=== PATIENT | female | born 1985 | race African-American/Black ===

== ENCOUNTER 2017-07-05 04:52 | Emergency (ER) | payer MEDICAID ==
[~2017-07-05] VITALS: Ht 162.6 cm; Wt 57.0 kg
[~2017-07-05 04:52] MED LIST: NO MEDICATIONS REPORTED
[2017-07-05] MEDS ORDERED: TETANUS, DIPHTHERIA, PERTUSSIS VAC/PF 0.5ML (>7YR OLD) IM ONE (06:15)
[2017-07-05] MEDS ORDERED: ONDANSETRON 4MG ODT PO ONE (06:15)
[2017-07-05] MEDS ORDERED: MORPHINE SULFATE 10 MG/ML CPJ SUBCUT ONE (06:15)
[2017-07-05 07:59] VITALS: BP 122/76
== END 2017-07-05 08:00 | disposition home or self-care (01) ==
LOC: ER 04:52
DX: S40.022A Contusion of left upper arm, initial encounter (principal); S91.203A Unspecified open wound of unspecified great toe with damage to nail, initial encounter; Y93.89 Activity, other specified; Y04.2XXA Assault by strike against or bumped into by another person, initial encounter; Y92.89 Other specified places as the place of occurrence of the external cause; R03.0 Elevated blood-pressure reading, without diagnosis of hypertension; F17.210 Nicotine dependence, cigarettes, uncomplicated; F12.90 Cannabis use, unspecified, uncomplicated; Z23 Encounter for immunization; M25.532 Pain in left wrist
CPT/HCPCS: 73090; 73660; 90471; 90715; 96372; 99284; J2270; Q0162; Z7610; A4565

== ENCOUNTER 2018-02-21 10:40 | Emergency (ER) | payer MEDICAID, OTHER ==
[~2018-02-21] VITALS: Ht 165.1 cm; Wt 58.0 kg
[2018-02-21] MEDS ORDERED: ACETAMINOPHEN 325MG TABLET PO ONE (11:30)
[2018-02-21 13:35] VITALS: BP 118/75
== END 2018-02-21 13:38 | disposition home or self-care (01) ==
LOC: ER 11:15
DX: J02.9 Acute pharyngitis, unspecified (principal); R51 Headache; K12.0 Recurrent oral aphthae; F12.10 Cannabis abuse, uncomplicated; Z98.890 Other specified postprocedural states; Z98.51 Tubal ligation status
CPT/HCPCS: 87070; 87430; 99283

== ENCOUNTER 2018-06-14 20:09 | Emergency (ER) | payer MEDICAID ==
[~2018-06-14] VITALS: Ht 165.1 cm; Wt 60.0 kg
[2018-06-14] MEDS ORDERED: SODIUM CHLORIDE 0.9% 1,000 ML IV ONE ×2 (21:00→22:03)
[2018-06-14] MEDS ORDERED: ONDANSETRON HCL 4MG/2ML INJ IV STA (21:00)
[2018-06-14] MEDS ORDERED: MORPHINE SULFATE 4 MG/ML CPJ (NOT FOR IM USE) IV STA (21:00)
[2018-06-14 21:11] LABS: CLARITY URINE CLEAR (CLEAR); COLOR URINE YELLOW (YELLOW); KETONES URINE NEGATIVE (NEGATIVE); LEUKOCYTE ESTERASE URINE NEGATIVE (NEGATIVE); NITRITE URINE NEGATIVE (NEGATIVE); OCCULT BLOOD URINE NEGATIVE (NEGATIVE); PROTEIN URINE NEGATIVE (NEGATIVE); SPECIFIC GRAVITY URINE 1.019 (1.005-1.030)
[2018-06-14 21:29] LABS: HEMATOCRIT. 28.3 % (36.0-48.0); HEMOGLOBIN. 8.5 g/dL (12.0-16.0); MEAN CORPUSCULAR HEMOGLOBIN 20.4 pg (28.0-32.0); MEAN PLATELET VOLUME 6.7 fl (7.4-10.4); PLATELET 343 x1000/uL (130-400); RED BLOOD CELL COUNT 4.16 mill/uL (4.2-5.4)
[2018-06-14 21:34] LABS: CHLORIDE 109 mEq/L (98-107)
[2018-06-14 21:37] LABS: PARTIAL THROMBOPLASTIN TIME 27.6 sec (23.4-31.0); PROTHROMBIN TIME 10.6 sec (9.6-11.0)
[2018-06-14 21:38] LABS: ETHANOL BLOOD < 10 mg/dL
[2018-06-14 21:40] LABS: HCG SCREEN NEGATIVE
[2018-06-14 21:41] LABS: *AMPHETAMINES SCREEN URINE NEGATIVE (NEGATIVE); *BARBITURATES SCREEN URINE NEGATIVE (NEGATIVE)
[2018-06-14 21:42] LABS: *BENZODIAZEPINES SCREEN URINE NEGATIVE (NEGATIVE); *COCAINE SCREEN URINE NEGATIVE (NEGATIVE); METHADONE URINE SCREEN NEGATIVE (NEGATIVE); OPIATES URINE SCREEN NEGATIVE (NEGATIVE); PHENCYCLIDINE URINE SCREEN NEGATIVE (NEGATIVE)
[2018-06-14 21:50] LABS: CANNABINOID URINE SCREEN PRESUMTIVE POSITIVE (NEGATIVE)
[2018-06-14 21:57] LABS: PLATELET ESTIMATE NORMAL
[2018-06-14] MEDS ORDERED: KETOROLAC 30MG/ML VIAL IV ONE (22:15)
[2018-06-14 23:34] VITALS: BP 120/76
== END 2018-06-14 23:39 | disposition home or self-care (01) ==
LOC: ER 20:14
DX: N83.209 Unspecified ovarian cyst, unspecified side (principal); N28.1 Cyst of kidney, acquired; F12.10 Cannabis abuse, uncomplicated; Z98.890 Other specified postprocedural states; Z98.51 Tubal ligation status
CPT/HCPCS: 36415; 74176; 80053; 80305; 80320; 81003; 81025; 83690; 83880; 84484; 84703; 85025; 85610; 85730; 96374; 96375; 99284; J1885; J2270; J2405; J7030; Z7610; G0480

== ENCOUNTER 2022-08-08 07:22 | Emergency (ER) | payer MEDICAID ==
[~2022-08-08] VITALS: Ht 170.2 cm; Wt 52.3 kg
[~2022-08-08 07:22] MED LIST changes: +SERT25TA PO
[2022-08-08 07:31] VITALS: BP 120/81
[2022-08-08 08:55] LABS: HEMATOCRIT. 29.9 % (36.0-48.0); MEAN CORPUSCULAR HEMOGLOBIN 19.6 pg (28.0-32.0); MEAN CORPUSCULAR VOLUME 64.8 fL (81.0-99.0); MEAN PLATELET VOLUME 8.6 fl (7.4-10.4); PLATELET 358 x1000/uL (130-400); RED BLOOD CELL COUNT 4.61 mill/uL (4.2-5.4); RED CELL DISTRIBUTION WIDTH 28.5 % (11.6-14.6)
[2022-08-08 09:02] LABS: CHLORIDE 111 mEq/L (98-107)
[2022-08-08 11:41] LABS: PLATELET ESTIMATE NORMAL
== END 2022-08-08 09:00 | disposition left against medical advice (07) ==
LOC: ER 07:22
DX: Z53.21 Procedure and treatment not carried out due to patient leaving prior to being seen by health care provider (principal)
CPT/HCPCS: 36415; 80053; 85025; 86850; 86900; 99281

== ENCOUNTER 2023-10-26 20:45 | Inpatient (IN) | payer BC, MEDICAID, MEDICARE ==
[~2023-10-26] VITALS: Ht 170.2 cm; Wt 59.0 kg
[2023-10-26 21:33] LABS: MEAN CORPUSCULAR HEMOGLOBIN 19.7 pg (28.0-32.0); MEAN CORPUSCULAR HGB CONC 29.9 g/dL (31.0-37.0); MEAN CORPUSCULAR VOLUME 65.8 fL (81.0-99.0); MEAN PLATELET VOLUME 8.5 fl (7.4-10.4); PLATELET 433 x1000/uL (130-400); RED BLOOD CELL COUNT 3.57 mill/uL (4.2-5.4); RED CELL DISTRIBUTION WIDTH 28.1 % (11.6-14.6); WHITE BLOOD COUNT 7.7 x1000/uL (4.5-11.0)
[2023-10-26 21:39] LABS: CHLORIDE 108 mEq/L (98-107); POTASSIUM 3.6 mEq/L (3.5-5.1); SODIUM 138 mEq/L (136-145)
[2023-10-26 21:40] LABS: CALCIUM 8.8 mg/dL (8.7-10.4); CARBON DIOXIDE 25 mEq/L (21-32)
[2023-10-26 21:45] LABS: CREATININE 0.8 mg/dL (0.6-1.0); GLUCOSE 92 mg/dL (70-105); PARTIAL THROMBOPLASTIN TIME 27.1 sec (23.4-31.0); PROTHROMBIN TIME 10.9 sec (9.6-11.0); UREA NITROGEN BLOOD 8 mg/dL (9-23)
[2023-10-26 21:46] LABS: DIFFERENTIAL COMMENT 1
[2023-10-26 21:52] LABS: HEMATOCRIT. 23.5 % (36.0-48.0)
[2023-10-26 21:53] LABS: TROPONIN I HIGH SENSITIVITY < 4 ng/L (3.0-34)
[2023-10-26 22:01] LABS: HCG SCREEN NEGATIVE
[2023-10-26 22:55] LABS: ANISOCYTOSIS 2+; PLATELET ESTIMATE INCREASED
[2023-10-26 22:56] LABS: HYPOCHROMASIA 2+; MICROCYTOSIS 3+
[2023-10-26] MEDS: KETOROLAC 30MG/ML VIAL IV ONE (23:06)
[2023-10-27] MEDS ORDERED: NALOXONE HCL 0.4MG/ML VIAL IV PRN (09:00)
[2023-10-27] MEDS: ONDANSETRON HCL 4MG/2ML INJ IV PRN (09:05)
[2023-10-27] MEDS: HYDROCODONE/ACETAMINOPHEN 10/325MG TABLET PO PRN (09:05)
[2023-10-27 10:00] VITALS: BP 125/70; PULSE 88; RESP 18; TEMP 36.78072; O2SAT 100
[2023-10-27 10:47] VITALS: BP 125/70; PULSE 88; RESP 18; TEMP 36.8628
[2023-10-27 12:00] VITALS: BP 115/55; PULSE 43; RESP 18; TEMP 36.61404
[2023-10-27] MEDS ORDERED: ACETAMINOPHEN 325MG TABLET PO PRN (12:15)
[2023-10-27] MEDS ORDERED: CLONIDINE 0.1MG TABLET PO PRN (12:15)
[2023-10-27] MEDS ORDERED: ONDANSETRON HCL 4MG/2ML INJ IV PRN (12:15)
[2023-10-27 12:20] LABS: HEMATOCRIT. 28.9 % (36.0-48.0); HEMOGLOBIN. 8.4 g/dL (12.0-16.0); MEAN CORPUSCULAR HEMOGLOBIN 20.2 pg (28.0-32.0); MEAN CORPUSCULAR HGB CONC 29.2 g/dL (31.0-37.0); MEAN CORPUSCULAR VOLUME 69.3 fL (81.0-99.0); MEAN PLATELET VOLUME 8.5 fl (7.4-10.4); PLATELET 435 x1000/uL (130-400); RED BLOOD CELL COUNT 4.17 mill/uL (4.2-5.4); RED CELL DISTRIBUTION WIDTH 29.3 % (11.6-14.6); WHITE BLOOD COUNT 10.8 x1000/uL (4.5-11.0)
[2023-10-27 12:24] LABS: CALCIUM 9.3 mg/dL (8.7-10.4); CHLORIDE 108 mEq/L (98-107); POTASSIUM 4.2 mEq/L (3.5-5.1); SODIUM 140 mEq/L (136-145)
[2023-10-27 12:25] LABS: CARBON DIOXIDE 27 mEq/L (21-32)
[2023-10-27 12:30] LABS: CREATININE 0.7 mg/dL (0.6-1.0); GLUCOSE 84 mg/dL (70-105); UREA NITROGEN BLOOD 7 mg/dL (9-23)
[2023-10-27 12:52] LABS: HEPATITIS B SURFACE ANTIGEN NEGATIVE (Negative)
[2023-10-27 13:03] LABS: DIFFERENTIAL COMMENT 1
[2023-10-27 13:13] LABS: HEPATITIS C AB NON REACTIVE (Neg) (Negative)
[2023-10-27 16:31] VITALS: BP 120/60; PULSE 59; RESP 20; TEMP 37.05852; O2SAT 100
[2023-10-27 16:58] VITALS: BP 120/60; PULSE 59; RESP 20; TEMP 37.05852; O2SAT 100
[2023-10-27 20:00] VITALS: BP 128/82; PULSE 52; RESP 20; TEMP 36.61404; O2SAT 100
[2023-10-27 20:06] LABS: HYPOCHROMASIA 2+; MICROCYTOSIS 3+; PLATELET ESTIMATE INCREASED
[2023-10-27 20:07] LABS: ANISOCYTOSIS 3+
[2023-10-28] VITALS: BP 117/66; PULSE 47; RESP 20; TEMP 36.72516; O2SAT 99
[2023-10-28 04:00] VITALS: BP 118/98; PULSE 51; RESP 20; TEMP 36.50292; O2SAT 98
[2023-10-28 06:23] LABS: BASOPHILS % 1.4 % (0.0-2.0); EOSINOPHILS % 1.8 % (0.0-5.0); HEMATOCRIT. 26.3 % (36.0-48.0); HEMOGLOBIN. 7.9 g/dL (12.0-16.0); LYMPHOCYTES % 37.5 % (20.0-50.0); MEAN CORPUSCULAR HEMOGLOBIN 20.6 pg (28.0-32.0); MEAN CORPUSCULAR VOLUME 68.8 fL (81.0-99.0); MEAN PLATELET VOLUME 8.6 fl (7.4-10.4); MONOCYTES % 7.7 % (2.0-8.0); NEUTROPHILS % 51.6 % (40.0-76.0); PLATELET 407 x1000/uL (130-400); RED BLOOD CELL COUNT 3.82 mill/uL (4.2-5.4); RED CELL DISTRIBUTION WIDTH 29.8 % (11.6-14.6); WHITE BLOOD COUNT 6.6 x1000/uL (4.5-11.0)
[2023-10-28 06:24] LABS: CHLORIDE 107 mEq/L (98-107); POTASSIUM 3.8 mEq/L (3.5-5.1); SODIUM 139 mEq/L (136-145)
[2023-10-28 06:25] LABS: CARBON DIOXIDE 28 mEq/L (21-32)
[2023-10-28 06:30] LABS: CREATININE 0.8 mg/dL (0.6-1.0); GLUCOSE 79 mg/dL (70-105); UREA NITROGEN BLOOD 8 mg/dL (9-23)
[2023-10-28 06:46] LABS: DIFFERENTIAL COMMENT 1
[2023-10-28 08:00] VITALS: BP 113/68; PULSE 52; RESP 20; TEMP 36.72516; O2SAT 99
[2023-10-28 12:00] VITALS: BP 115/72; PULSE 55; RESP 20; TEMP 36.55848; O2SAT 99
[2023-10-28 16:00] VITALS: BP 107/77; PULSE 59; RESP 20; TEMP 36.16956; O2SAT 99
[2023-10-28 20:00] VITALS: BP 114/73; PULSE 63; RESP 19; TEMP 36.16956
[2023-10-29] VITALS: BP 118/70; PULSE 46; RESP 16; TEMP 36.78072
[2023-10-29 04:00] VITALS: BP 109/71; PULSE 58; RESP 19; TEMP 36.28068; O2SAT 100
[2023-10-29 08:00] VITALS: BP 119/80; PULSE 61; RESP 20; TEMP 36.22512; O2SAT 99
[2023-10-29 12:00] VITALS: BP 112/75; PULSE 53; RESP 20; TEMP 36.33624; O2SAT 99
[2023-10-29 12:14] LABS: BASOPHILS % 2.1 % (0.0-2.0); EOSINOPHILS % 1.4 % (0.0-5.0); HEMATOCRIT. 32.4 % (36.0-48.0); HEMOGLOBIN. 9.6 g/dL (12.0-16.0); LYMPHOCYTES % 28.9 % (20.0-50.0); MEAN CORPUSCULAR HEMOGLOBIN 20.4 pg (28.0-32.0); MEAN CORPUSCULAR HGB CONC 29.5 g/dL (31.0-37.0); MEAN CORPUSCULAR VOLUME 69.2 fL (81.0-99.0); MEAN PLATELET VOLUME 8.4 fl (7.4-10.4); MONOCYTES % 8.4 % (2.0-8.0); NEUTROPHILS % 59.2 % (40.0-76.0); PLATELET 472 x1000/uL (130-400); RED BLOOD CELL COUNT 4.69 mill/uL (4.2-5.4); RED CELL DISTRIBUTION WIDTH 30.5 % (11.6-14.6); WHITE BLOOD COUNT 6.6 x1000/uL (4.5-11.0)
[2023-10-29 12:16] LABS: DIFFERENTIAL COMMENT 1
[2023-10-29 12:20] LABS: CHLORIDE 105 mEq/L (98-107); POTASSIUM 4.3 mEq/L (3.5-5.1); SODIUM 136 mEq/L (136-145)
[2023-10-29 12:21] LABS: CALCIUM 9.9 mg/dL (8.7-10.4); CARBON DIOXIDE 27 mEq/L (21-32)
[2023-10-29 12:26] LABS: CREATININE 0.7 mg/dL (0.6-1.0); GLUCOSE 82 mg/dL (70-105); UREA NITROGEN BLOOD 8 mg/dL (9-23)
[2023-10-29 12:28] LABS: ALANINE AMINOTRANSFERASE 21 IU/L (10-49); ALBUMIN 4.3 g/dL (3.2-4.8); ASPARTATE AMINOTRANSFERASE 23 IU/L (<34); BILIRUBIN DIRECT 0.1 mg/dL (<=3.0); PHOSPHORUS 5.1 mg/dL (2.5-4.9); PROTHROMBIN TIME 10.9 sec (9.6-11.0)
[2023-10-29 12:29] LABS: BILIRUBIN TOTAL 0.5 mg/dL (0.1-1.0); PROTEIN TOTAL 7.4 g/dL (6.0-8.3)
[2023-10-29 14:20] VITALS: BP 120/68; PULSE 55; TEMP 97; O2SAT 99
[2023-10-29 16:00] VITALS: BP 120/68; PULSE 55; RESP 20; TEMP 36.114; TEMP 36.11400; O2SAT 99
== END 2023-10-29 16:45 | disposition home or self-care (01) | DRG 663 ==
LOC: ER 20:45 → 5WST 22:52 → 7WST 10-27 09:48
PROVIDERS: ADMIT Internal Medicine; ATTEND Internal Medicine
PROC: 30233N1 Transfusion of Nonautologous Red Blood Cells into Peripheral Vein, Percutaneous Approach (ICD-10-PCS; principal; 2023-10-27)
DX: D50.9 Iron deficiency anemia, unspecified (principal); N92.0 Excessive and frequent menstruation with regular cycle; R00.1 Bradycardia, unspecified; R07.89 Other chest pain; Z91.199 Patient's noncompliance with other medical treatment and regimen due to unspecified reason; Z98.891 History of uterine scar from previous surgery
CPT/HCPCS: 36415; 71045; 80048; 80076; 83735; 83880; 84100; 84484; 84703; 85025; 86705; 86850; 86900; 86920; 87340; 93005; 93306; 93970; 99291; J1885; J2405; P9016

== ENCOUNTER 2024-02-14 11:09 | Emergency (ER) | payer OTHER, MEDICAID ==
[~2024-02-14] VITALS: Ht 170.2 cm; Wt 60.0 kg
[~2024-02-14 11:09] MED LIST changes: -NO MEDICATIONS REPORTED
[2024-02-14 11:13] VITALS: O2SAT 100
[2024-02-14 11:39] VITALS: BP 129/83; PULSE 78; RESP 18; TEMP 97.9; O2SAT 100
== END 2024-02-14 14:51 | disposition home or self-care (01) ==
LOC: ER 11:09
DX: R53.1 Weakness (principal); Z98.51 Tubal ligation status; Z98.890 Other specified postprocedural states
CPT/HCPCS: 93005; 99283

== ENCOUNTER 2024-02-15 20:23 | Emergency (ER) | payer MEDICAID ==
[~2024-02-15] VITALS: Ht 157.5 cm; Wt 58.0 kg
[2024-02-15 20:28] VITALS: O2SAT 100
[2024-02-16 01:01] LABS: CHLORIDE 107 mEq/L (98-107); POTASSIUM 3.5 mEq/L (3.5-5.1); SODIUM 140 mEq/L (136-145)
[2024-02-16 01:02] LABS: CARBON DIOXIDE 27 mEq/L (21-32)
[2024-02-16 01:03] LABS: CALCIUM 9.2 mg/dL (8.7-10.4)
[2024-02-16 01:07] LABS: CREATININE 0.7 mg/dL (0.6-1.0); GLUCOSE 106 mg/dL (70-105)
[2024-02-16 01:08] LABS: BASOPHILS % 1.3 % (0.0-2.0); EOSINOPHILS % 1.1 % (0.0-5.0); HEMATOCRIT. 25.8 % (36.0-48.0); HEMOGLOBIN. 7.7 g/dL (12.0-16.0); LYMPHOCYTES % 31.8 % (20.0-50.0); MEAN CORPUSCULAR HEMOGLOBIN 19.5 pg (28.0-32.0); MEAN CORPUSCULAR HGB CONC 29.7 g/dL (31.0-37.0); MEAN CORPUSCULAR VOLUME 65.8 fL (81.0-99.0); MEAN PLATELET VOLUME 7.2 fl (7.4-10.4); MONOCYTES % 8.3 % (2.0-8.0); NEUTROPHILS % 57.5 % (40.0-76.0); PLATELET 529 x1000/uL (130-400); RED BLOOD CELL COUNT 3.93 mill/uL (4.2-5.4); RED CELL DISTRIBUTION WIDTH 19.3 % (11.6-14.6); UREA NITROGEN BLOOD 8 mg/dL (9-23); WHITE BLOOD COUNT 6.4 x1000/uL (4.5-11.0)
[2024-02-16 01:13] LABS: DIFFERENTIAL COMMENT 1
[2024-02-16 01:14] LABS: ADD RBC MORPHOLOGY YES
[2024-02-16 02:20] VITALS: BP 112/68; PULSE 68; RESP 12; TEMP 36.66960; O2SAT 100
[2024-02-16 03:52] LABS: CLARITY URINE CLOUDY (CLEAR); COLOR URINE YELLOW (YELLOW); SPECIFIC GRAVITY URINE 1.029 (1.005-1.030)
[2024-02-16 03:53] LABS: GLUCOSE URINE NEGATIVE (NEGATIVE); KETONES URINE TRACE (NEGATIVE); PROTEIN URINE TRACE (NEGATIVE)
[2024-02-16 03:54] LABS: NITRITE URINE POSITIVE (NEGATIVE); OCCULT BLOOD URINE 1+ (NEGATIVE)
[2024-02-16 03:55] LABS: LEUKOCYTE ESTERASE URINE 2+ (NEGATIVE)
[2024-02-16 05:16] LABS: SQUAMOUS EPITHELIAL CELL URINE 2+ /lpf (RARE/1+)
[2024-02-16 05:19] LABS: RBC URINE 0-2 /hpf (0-2); WBC URINE 15-25 /hpf (0-2)
[2024-02-16 05:20] LABS: BACTERIA URINE 4+
[2024-02-16 13:07] LABS: ANISOCYTOSIS 2+; HYPOCHROMASIA 3+; MICROCYTOSIS 3+; PLATELET ESTIMATE SLIGHTLY INCREASED
== END 2024-02-16 02:29 | disposition home or self-care (01) ==
LOC: ER 21:04
DX: D50.9 Iron deficiency anemia, unspecified (principal); Z98.51 Tubal ligation status; Z98.890 Other specified postprocedural states
CPT/HCPCS: 36415; 80048; 81003; 85025; 87077; 87186; 99283

== ENCOUNTER 2024-02-22 01:04 | Emergency (ER) | payer MEDICAID ==
[~2024-02-22] VITALS: Ht 165.1 cm; Wt 69.0 kg
[2024-02-22 01:19] VITALS: TEMP 98.2; O2SAT 98
[2024-02-22 02:48] VITALS: BP 121/83; PULSE 82; RESP 16
[2024-02-22] MEDS: KETOROLAC 30MG/ML VIAL IM ONE (02:48)
[2024-02-22] MEDS: ONDANSETRON 4MG ODT PO ONE (02:48)
[2024-02-22 04:11] LABS: BASOPHILS % 1.5 % (0.0-2.0); EOSINOPHILS % 1.5 % (0.0-5.0); HEMATOCRIT. 29.5 % (36.0-48.0); HEMOGLOBIN. 8.6 g/dL (12.0-16.0); LYMPHOCYTES % 38.2 % (20.0-50.0); MEAN CORPUSCULAR HEMOGLOBIN 19.3 pg (28.0-32.0); MEAN CORPUSCULAR VOLUME 66.6 fL (81.0-99.0); MEAN PLATELET VOLUME 7.1 fl (7.4-10.4); MONOCYTES % 7.1 % (2.0-8.0); NEUTROPHILS % 51.7 % (40.0-76.0); PLATELET 430 x1000/uL (130-400); RED BLOOD CELL COUNT 4.43 mill/uL (4.2-5.4); RED CELL DISTRIBUTION WIDTH 21.1 % (11.6-14.6); WHITE BLOOD COUNT 7.1 x1000/uL (4.5-11.0)
[2024-02-22 04:28] LABS: HCG SCREEN NEGATIVE
[2024-02-22 04:29] LABS: CHLORIDE 108 mEq/L (98-107); POTASSIUM 3.8 mEq/L (3.5-5.1); SODIUM 138 mEq/L (136-145)
[2024-02-22 04:32] LABS: CARBON DIOXIDE 23 mEq/L (21-32)
[2024-02-22 04:33] LABS: CALCIUM 9.5 mg/dL (8.7-10.4)
[2024-02-22 04:38] LABS: CREATININE 0.8 mg/dL (0.6-1.0); GLUCOSE 94 mg/dL (70-105); UREA NITROGEN BLOOD 8 mg/dL (9-23)
[2024-02-22 04:39] LABS: ALANINE AMINOTRANSFERASE 7 IU/L (10-49)
[2024-02-22 04:40] LABS: ALBUMIN 4.5 g/dL (3.2-4.8); ASPARTATE AMINOTRANSFERASE 18 IU/L (<34); BILIRUBIN TOTAL 0.3 mg/dL (0.1-1.0); PROTEIN TOTAL 7.7 g/dL (6.0-8.3)
[2024-02-22] MEDS: HYDROCODONE/ACETAMINOPHEN 5/325MG TABLET PO ONE (04:45)
[2024-02-22 05:02] LABS: DIFFERENTIAL COMMENT 1
[2024-02-22] MEDS ORDERED: ACET-2708 MT (05:35)
[2024-02-22] MEDS ORDERED: FERR1TAB91 MT (05:35)
== END 2024-02-22 05:58 | disposition home or self-care (01) ==
LOC: ER 01:04
DX: D64.9 Anemia, unspecified (principal); Z98.890 Other specified postprocedural states; Z98.51 Tubal ligation status
CPT/HCPCS: 99285; 86870; 76830; 76856; 80053; 84703; 85025; 86850; 86900; 86901; 36415; 96372; Q0162; J1885

== ENCOUNTER 2024-09-14 20:36 | Emergency (ER) | payer OTHER ==
[~2024-09-14] VITALS: Ht 170.2 cm; Wt 56.4 kg
[~2024-09-14 20:36] MED LIST changes: +ACET-2708 MT; +FERR1TAB91 MT
[2024-09-14 21:07] VITALS: TEMP 37; O2SAT 100
[2024-09-14 21:30] LABS: HEMATOCRIT. 29.9 % (36.0-48.0); HEMOGLOBIN. 8.5 g/dL (12.0-16.0); MEAN PLATELET VOLUME 7.1 fl (7.4-10.4); PLATELET 401 x1000/uL (130-400); RED BLOOD CELL COUNT 4.43 mill/uL (4.2-5.4); RED CELL DISTRIBUTION WIDTH 22.8 % (11.6-14.6)
[2024-09-14 21:41] LABS: CREATININE 0.9 mg/dL (0.6-1.0); UREA NITROGEN BLOOD 8 mg/dL (9-23)
[2024-09-14] MEDS: ONDANSETRON 4MG ODT PO ONE (21:55)
[2024-09-14] MEDS: HYDROCODONE/ACETAMINOPHEN 5/325MG TABLET PO ONE (21:56)
[2024-09-14 22:04] LABS: EOSINOPHILS % MANUAL 2.0 % (0.0-5.0); LYMPHOCYTES % MANUAL 35.0 % (20.0-60.0); MONOCYTES % MANUAL 4.0 % (2.0-8.0); NEUTROPHILS % MANUAL 59.0 % (45.0-75.0); PLATELET ESTIMATE SLIGHTLY INCREASED
[2024-09-14 22:56] LABS: ASPARTATE AMINOTRANSFERASE 20 IU/L (<34); BILIRUBIN DIRECT < 0.1 mg/dL (<=3.0); HCG SCREEN NEGATIVE
[2024-09-14 22:57] LABS: BILIRUBIN TOTAL 0.2 mg/dL (0.1-1.0); PROTEIN TOTAL 7.6 g/dL (6.0-8.3)
[2024-09-15] MEDS: KETOROLAC 30MG/ML VIAL IM ONE (00:15)
[2024-09-15] MEDS: PANTOPRAZOLE 40MG DR TABLET PO ONE (00:15)
[2024-09-15] MEDS: SODIUM CHLORIDE 0.9% 1,000 ML IV ONE (00:30)
[2024-09-15] MEDS: KETOROLAC 15MG/ML VIAL IV ONE (00:30)
[2024-09-15] MEDS: MORPHINE SULFATE 4 MG/ML INJ (FOR IV/IM USE) IV ONE (00:30)
[2024-09-15] MEDS: PANTOPRAZOLE SODIUM 40 MG/VIAL IV ONE ×2 (00:30→03:00)
[2024-09-15] MEDS ORDERED: IBUP-2028 MT (01:55)
[2024-09-15] MEDS ORDERED: TOPUD PO (01:55)
[2024-09-15] MEDS: MORPHINE SULFATE 4 MG/ML INJ (FOR IV/IM USE) ONE (02:26)
[2024-09-15] MEDS: KETOROLAC 15MG/ML VIAL ONE (03:00)
[2024-09-15 05:26] VITALS: BP 114/47; PULSE 61; RESP 12; O2SAT 100
== END 2024-09-15 05:28 | disposition home or self-care (01) ==
LOC: ER 20:36
DX: N83.202 Unspecified ovarian cyst, left side (principal); D21.9 Benign neoplasm of connective and other soft tissue, unspecified; Z79.899 Other long term (current) drug therapy; Z98.890 Other specified postprocedural states
CPT/HCPCS: 99284; 74176; 76830; 76856; 80076; 80048; 84703; 83690; 83735; 85025; 36415; Q0162; J1885; J2470; J2270; J7030

== ENCOUNTER 2024-11-27 14:13 | Emergency (ER) | payer OTHER ==
[~2024-11-27] VITALS: Ht 170.2 cm; Wt 56.0 kg
[~2024-11-27 14:13] MED LIST changes: +IBUP-2028 MT; +TOPUD PO
[2024-11-27 14:16] VITALS: O2SAT 100
[2024-11-27 14:25] VITALS: BP 133/72; PULSE 86; RESP 18; TEMP 36.5; O2SAT 100
== END 2024-11-27 17:30 | disposition left against medical advice (07) ==
LOC: ER 14:13
DX: M79.601 Pain in right arm (principal); Z98.890 Other specified postprocedural states
CPT/HCPCS: 99281